=== PATIENT | female | born 1955 | race Caucasian/White ===

== ENCOUNTER 2022-11-08 04:36 | Day surgery (SDC) | payer OTHER ==
[2022-11-07 13:14] VITALS: BMI 31.2
[2022-11-08 12:08] VITALS: TEMP 98
[2022-11-08 12:38] VITALS: RESP 18
[2022-11-08 12:41] VITALS: BP 141/77; PULSE 63
== END 2022-11-08 12:54 | disposition home or self-care (01) ==
LOC: JASU-ENDO 04:36
PROVIDERS: ATTEND Internal Medicine Gastroenterology
PROC: 0DB68ZX Excision of Stomach, Via Natural or Artificial Opening Endoscopic, Diagnostic (ICD-10-PCS; principal; 2022-11-08 10:30)
DX: K29.50 Unspecified chronic gastritis without bleeding (principal)
CPT/HCPCS: 88305-TC; 88342-TC